=== PATIENT | female | born 1995 | race Hispanic/Latino ===

== ENCOUNTER 2017-04-28 18:28 | Outpatient (CLI) | payer MEDICAID ==
[2017-04-28 19:37] LABS: Hematocrit 33.8 % (30.3-42.9); Hemoglobin 10.7 gm/dl (10.1-14.3); Mean Corpuscular HGB Conc 32 % (30-34); Platelet Count 322 K/mm3 (140-440); Red Blood Count 4.88 M/mm3 (3.65-5.03); Red Cell Distribution Width 16.8 % (13.2-15.2); White Blood Count 12.3 K/mm3 (4.5-11.0)
[2017-04-28 19:40] LABS: Mean Corpuscular Hemoglobin 22 pg (28-32); Mean Corpuscular Volume 69 fl (79-97)
[2017-04-28 19:41] LABS: Bacteria,Urine 1+ /HPF (Negative); Bilirubin,Urine NEG (Negative); Blood,Urine NEG (Negative); Ketones,Urine TR mg/dL (Negative); Leukocyte Esterase,Urine NEG (Negative); Mucus,Urine 3+ /HPF; Nitrite,Urine NEG (Negative); Protein,Urine <15 mg/dL mg/dL (Negative); Urobilinogen,Urine < 2.0 mg/dL (<2.0)
[2017-04-28 20:04] LABS: Alanine Aminotransferase 11 units/L (7-56); Lactate Dehydrogenase 212 units/L (91-180); Uric Acid 6.4 mg/dL (3.5-7.6)
[2017-04-28 20:47] VITALS: BP 106/68
[2017-04-28] MEDS ORDERED: LACTATED RINGERS 1,000 ML ONE (20:53)
[2017-04-28] MEDS ORDERED: LACTATED RINGERS 1,000 ML IV ONE (21:00)
== END 2017-04-28 21:55 | disposition home or self-care (01) ==
LOC: TRG 18:28
PROVIDERS: ATTEND Obstetrics & Gynecology
DX: O47.03 False labor before 37 completed weeks of gestation, third trimester (principal); Z3A.36 36 weeks gestation of pregnancy; Z79.899 Other long term (current) drug therapy
CPT/HCPCS: 36415; 59025; 81001; 82565; 82962; 83615; 84450; 84460; 84550; 85027; 96360; J7120

== ENCOUNTER 2017-05-10 21:01 | Outpatient (CLI) | payer MEDICAID ==
[2017-05-10 21:16] VITALS: BP 118/81
[2017-05-10] MEDS ORDERED: LACTATED RINGERS 1,000 ML IV ONE (21:35)
--- NOTE | 2017-05-11 | Ultrasound Report ---
FINAL REPORT PROCEDURE: US OB LIMITED TECHNIQUE: Real-time limited sonographic examination was performed for evaluation of size, position, heartbeat, fluid volume for each fetus with image documentation (1 or more fetuses). CPT 26743 HISTORY: LEAKING AMNIOTIC FLUID COMPARISON: No prior studies are available for comparison. FINDINGS: Amniotic fluid index is 7.1 centimeters. heart rate is 177 beats per minute. IMPRESSION: Amniotic fluid index is 7.1 centimeters. heart rate is 177 beats per minute.
== END 2017-05-11 00:30 | disposition home or self-care (01) ==
LOC: TRG 21:01
PROVIDERS: ATTEND Obstetrics & Gynecology
DX: O42.92 Full-term premature rupture of membranes, unspecified as to length of time between rupture and onset of labor (principal); O47.1 False labor at or after 37 completed weeks of gestation; Z87.891 Personal history of nicotine dependence; Z3A.38 38 weeks gestation of pregnancy
CPT/HCPCS: 59025; 76815; J7120

== ENCOUNTER 2017-05-21 14:25 | Inpatient (IN) | payer MEDICAID ==
[2017-05-21 16:28] LABS: Hematocrit 32.3 % (30.3-42.9); Hemoglobin 10.4 gm/dl (10.1-14.3); Mean Corpuscular HGB Conc 32 % (30-34); Platelet Count 293 K/mm3 (140-440); Red Blood Count 4.87 M/mm3 (3.65-5.03); Red Cell Distribution Width 17.5 % (13.2-15.2)
[2017-05-21 16:30] LABS: Mean Corpuscular Hemoglobin 21 pg (28-32); Mean Corpuscular Volume 66 fl (79-97)
[2017-05-21] MEDS ORDERED: BRETHINE IVP PRN (16:44)
[2017-05-21] MEDS ORDERED: BRETHINE SUB-Q PRN (16:44)
[2017-05-21] MEDS ORDERED: MINERAL OIL PO PRN (16:44)
[2017-05-21] MEDS ORDERED: STADOL IV PRN (16:44)
[2017-05-21] MEDS ORDERED: ePHEDrine SULFATE IV PRN (16:44)
[2017-05-21] MEDS ORDERED: CERVIDIL VG ONE (16:44)
[2017-05-21] MEDS ORDERED: SUBLIMAZE IV PRN (16:44)
[2017-05-21] MEDS ORDERED: ZOFRAN IV PRN (16:44)
[2017-05-21] MEDS ORDERED: XYLOCAINE 2% INFILTRATI ONE (16:44)
--- NOTE | 2017-05-21 16:53 | History and Physical Report ---
History of Present Illness Date of examination: 05/21/17 Date of admission: 05/21/17 14:25 Chief complaint: My fluid is low History of present illness: Patient is a 22 year old who presents from [facility] after being told that her fluid was low. STEPHANIE measured 5.5 today. Patient was also diagnosed with gestational diabetes but has reported low blood sugars with "blacking out" until today when she told [facility] that her sugars have been in the 160s. In any case patient is 40 weeks today and presents for induction of labor. Past History Past Medical History: hypertension (gestational) Past Surgical History: no surgical history Family/Genetic History: diabetes Social history: - Obstetrical History Expected Date of Delivery: 05/21/17 Actual Gestation: 40 Week(s) 0 Day(s) : 2 Para: 1 Number of Living Children: 1 Medications and Allergies Allergies Allergy/AdvReac Type Severity Reaction Status Date / Time clindamycin Allergy Hives Verified 04/28/17 18:36 Home Medications Medication Instructions Recorded Confirmed Last Taken Type Ferrous Sulfate [Iron] 1 tab PO DAILY 04/28/17 04/28/17 Unknown History Metformin HCl [Glucophage] 500 mg PO DAILY 04/28/17 04/28/17 Unknown History Review of Systems All systems: negative Cardiovascular: syncope, lightheadedness - Vital Signs Vital signs: Vital Signs Pulse BP 102 H 122/82 05/21/17 15:05 05/21/17 15:05 Temp Pulse Resp BP Pulse Ox 97.3 F L 102 H 16 122/82 05/21/17 15:07 05/21/17 15:05 05/21/17 15:07 05/21/17 15:05 - Physical Exam Breasts: Positive: deferred Cardiovascular: Regular rate, Normal S1, Normal S2 Lungs: Positive: Clear to auscultation, Normal air movement Abdomen: Positive: normal appearance, soft, normal bowel sounds Genitourinary (Female): Positive: normal external genitalia, normal perenium Vagina: Positive: normal moisture Uterus: Positive: normal size, normal contour Extremities: Positive: normal Deep Tendon Reflex Grade: Normal +2 - Obstetrical Cervical Dilatation: 1 Cervical Effacement Percentage: 50 station: -3 Uterine Contraction Pattern: Absent Results Result Diagrams: 05/21/17 14:50 Abnormal lab results 05/21/17 05/21/17 Range/Units 14:50 15:10 WBC 14.1 H (4.5-11.0) K/mm3 MCV 66 L (79-97) fl MCH 21 L (28-32) pg RDW 17.5 H (13.2-15.2) % POC Glucose 67 L (70-105) All other labs normal. Assessment and Plan IUP at 40 weeks here for induction of labor for oligohydramnios. Will begin induction with cervidil and then proceed with pitocin in the am. Anticipate .
[2017-05-21] MEDS ORDERED: LACTATED RINGERS 1,000 ML IV SCH (17:00)
[2017-05-21] MEDS ORDERED: PITOCin/NS 20 UNIT/1000ML DRIP 20 UNITS/1,000 ML BAG IV SCH (17:00)
[2017-05-21] MEDS ORDERED: PITOCin/NS 30 UNIT/500ML 30 UNITS/500 ML BAG IV SCH (18:00)
[2017-05-22] MEDS ORDERED: NARCAN 2 MG/2 ML IV PRN (04:59)
[2017-05-22] MEDS ORDERED: fentaNYL-BUPIV 2 MCG/ML-0.125% 200 MCG/100 ML BAG EPIDURAL SCH (05:00)
--- NOTE | 2017-05-22 05:00 | Anesthesia Consultation ---
Anesthesia Consult and Med Hx Date of service: 05/22/17 - Airway Anesthetic Teeth Evaluation: Good ROM Head & Neck: Adequate Mental/Hyoid Distance: Adequate Mallampati Class: Class II Intubation Access Assessment: Probably Good - Pulmonary Exam CTA: Yes - Cardiac Exam Cardiac Exam: RRR - Pre-Operative Health Status ASA Pre-Surgery Classification: ASA2 Proposed Anesthetic Plan: Epidural, Spinal - Pulmonary Hx Asthma: Yes (last attack 1 yr ago) COPD: No Hx Pneumonia: No - Cardiovascular System Hx Hypertension: No - Central Nervous System Hx Seizures: No Hx Psychiatric Problems: Yes (depression, anxiety) - Endocrine Hx Renal Disease: No Hx End Stage Renal Disease: No Hx Hypothyroidism: No Hx Hyperthyroidism: No - Hematic Hx Anemia: No Hx Sickle Cell Disease: No - Other Systems Hx Alcohol Use: No Hx Obesity: Yes
[2017-05-22] MEDS ORDERED: PHENERGAN PO PRN (05:18)
[2017-05-22] MEDS ORDERED: TYLENOL PO PRN (05:18)
[2017-05-22] MEDS ORDERED: BENADRYL PO PRN (05:18)
[2017-05-22] MEDS ORDERED: PHENERGAN PR PRN (05:18)
[2017-05-22] MEDS ORDERED: DULCOLAX PR PRN (05:18)
[2017-05-22] MEDS ORDERED: TUCKS PAD TP PRN (05:18)
[2017-05-22] MEDS ORDERED: LANSINOH TP PRN (05:18)
[2017-05-22] MEDS ORDERED: MILK OF MAGNESIA PO PRN (05:18)
[2017-05-22] MEDS ORDERED: NORCO 5/325 PO PRN (05:18)
[2017-05-22] MEDS ORDERED: ZOFRAN IV PRN (05:18)
--- NOTE | 2017-05-22 05:18 | Procedure Note ---
OB Delivery Note - Delivery Date of Delivery: 05/22/17 Surgeon: YOCASTA PINK Estimated blood loss: 300cc - Vaginal Delivery presentation: vertex Delivery position: OA Intrapartum events: none Delivery augmentation: pitocin Delivery monitor: external FHT Route of delivery: Delivery placenta: spontaneous Delivery cord: 3 umbilical vessels Episiotomy: none Delivery laceration: none Anesthesia: none Delivery comments: Patient progressed to deliver a liveborn female with apgars of 8/9 and weight of 7lbs 3oz. The head and shoulders delivered without difficulty. The infant was bulb suctioned and stimulated. The cord was clamped and cut and infant placed on the patient's abdomen. The placenta delivered spontaneously intact with a 3VC. No lacerations noted. EBL 300ml. - Infant A at 1 minute: 8 (weight 7lbs 3oz) at 5 minutes: 9 Infant Gender: Female
[2017-05-22] MEDS ORDERED: SODIUM CHLORIDE FLUSH SYRINGE 10 ML IV NR (06:00)
[2017-05-22] MEDS ORDERED: PITOCin/NS 30 UNIT/500ML 30 UNITS/500 ML BAG IV SCH (07:00)
[2017-05-22] MEDS: MOTRIN PO SCH ×2 (11:30→22:23)
[2017-05-22 17:04] LABS: Hemoglobin 8.4 gm/dl (10.1-14.3)
[2017-05-23] MEDS: MOTRIN PO SCH ×3 (05:32→16:43)
[2017-05-23] MEDS ORDERED: BOOSTRIX IM ONE (08:00)
--- NOTE | 2017-05-23 09:52 | Progress Note ---
Assessment and Plan - Patient Problems (1) Oligohydramnios Current Visit: Yes Status: Acute Plan to address problem: Patient doing well. Discharge home Subjective - Subjective Date of service: 05/23/17 Interval history: The patient complains of having a rash on her torso has been present throughout the . She is currently breast-feeding. Patient reports: appetite normal, voiding normally, pain well controlled : doing well, nursing well Objective - Vital Signs Latest vital signs: Vital Signs Temp Pulse Resp BP BP Pulse Ox 05/23/17 01:34 98 F 86 18 102/57 05/22/17 16:14 98.3 F 82 18 102/68 96 Intake and Output 05/22/17 05/23/17 05/23/17 22:59 06:59 14:59 Intake Total 480 600 Balance 480 600 Intake: Oral 480 Intake, Free Water 600 Other: Total, Intake Amount 480 # Voids Void 2 1 # Bowel Movements 0 - Exam Breasts: Present: skin changes Cardiovascular: Present: Regular rate Uterus: Present: normal, firm - Labs Labs: Abnormal lab results 05/22/17 Range/Units 16:31 Hgb 8.4 L (10.1-14.3) gm/dl Hct 27.0 L (30.3-42.9) %
--- NOTE | 2017-05-23 09:53 | Discharge Summary ---
Providers - Providers Date of Admission: 05/21/17 14:25 Date of discharge: 05/23/17 Attending physician: DORIS KENDALL Primary care physician: DORIS KENDALL Hospitalization Reason for admission: other (oligohydramnios) Delivery: complications: none Discharge diagnosis: IUP at term delivered [place] baby: female Hospital course: The patient was admitted after being evaluated by maternal medicine with findings of an STEPHANIE of 5.5 cm. She was sent to labor and delivery for induction of labor. The patient had a successful vaginal delivery. Her course was uncomplicated. Condition at discharge: Good Disposition: DC-01 TO HOME OR SELFCARE - Discharge Diagnoses (1) Oligohydramnios Status: Acute Plan - Discharge Medications Prescriptions: Ferrous Sulfate [Feosol 325 MG tab] 325 mg PO BID #60 tablet HYDROcodone/APAP 5-325 [[place] 5/325] 1 each PO Q6HR PRN #30 tablet PRN Reason: Pain Hydrocortisone 1% [Hydrocortisone 1% CREAM] 1 applicatio TP BID #1 tube Ibuprofen [Motrin] 800 mg PO Q8HR PRN #60 tablet PRN Reason: Pain - Provider Discharge Summary Activity: no sex for 6 weeks, no heavy lifting 4 weeks, no strenuous exercise Diet: routine Instructions: routine Additional instructions: [] Smoking cessation referral if applicable(refer to patient education folder for contact #) [] Refer to [facility] Booklet Call your doctor immediately for: * Fever > 100.5 * Heavy vaginal bleeding ( >1 pad per hour) * Severe persistent headache * Shortness of breath * Reddened, hot, painful area to leg or breast * Follow-up 4 weeks - Follow up plan
[2017-05-23 14:51] VITALS: BP 102/74
== END 2017-05-23 17:00 | disposition home or self-care (01) | DRG 775 ==
LOC: LD 14:25 → OB 05-22 11:12
PROVIDERS: ADMIT Obstetrics & Gynecology; ATTEND Obstetrics & Gynecology
PROC: 10E0XZZ Delivery of Products of Conception, External Approach (ICD-10-PCS; principal; 2017-05-22)
DX: O41.03X0 Oligohydramnios, third trimester, not applicable or unspecified (principal); Z37.0 Single live birth; Z3A.40 40 weeks gestation of pregnancy; O99.52 Diseases of the respiratory system complicating childbirth; J45.909 Unspecified asthma, uncomplicated; O99.344 Other mental disorders complicating childbirth; F32.9 Major depressive disorder, single episode, unspecified
CPT/HCPCS: 36415; 82962; 85014; 85018; 85027; 86592; 86850; 86900; 86901; A6250; J0595; J2590; J3010; J7120

== ENCOUNTER 2017-06-30 09:07 | Day surgery (SDC) | payer MEDICAID ==
--- NOTE | 2017-06-30 08:53 | Short Stay Summary ---
Short Stay Documentation Date of service: 06/30/17 Narrative H&P: Patient is a 22 year old who presents today for elective sterilization. She is approximately 8 weeks post of a baby girl. - History Principal diagnosis: Undesired fertility H&P: obtained from office Past Medical History: No medical history Past Surgical History: No surgical history Social history: - Allergies and Medications Current Medications: Allergies clindamycin Allergy (Verified 06/25/17 12:53) Hives Home Medications Medication Instructions Recorded Confirmed Last Taken Type No Known Home Medications [No 06/25/17 06/25/17 Unknown History Reported Home Medications] - Physical exam General appearance: no acute distress Integumentary: no rash, no growths HEENT: Atraumatic Lungs: Clear to auscultation, Normal air movement Breasts: deferred Heart: Regular rate, Normal S1, Normal S2 Gastrointestinal: normal, normoactive bowel sounds Female Genitourinary: normal Rectal Exam: deferred Extremities: no ischemia, No edema - Brief post op/procedure progress note Date of procedure: 06/30/17 Pre-op diagnosis: Undesired fertility Post-op diagnosis: same Procedure: Laparoscopic Tubal ligation Anesthesia: GETA Findings: Normal appearing uterus tubes and ovaries Surgeon: DORIS KENDALL Estimated blood loss: 50-100ml Pathology: none Condition: stable - Hospital course Hospital course: Unremarkable - Disposition Condition at discharge: Good Disposition: DC-01 TO HOME OR SELFCARE Short Stay Discharge Plan Activity: advance as tolerated Weight Bearing Status: Weight Bear as Tolerated Diet: regular Follow up with: DORIS KENDALL MD [Primary Care Provider] - 14 Days Prescriptions: HYDROcodone/ACETAMINOPHEN [[place] 5-325 Tablet] 2 each PO Q6HR PRN #20 tablet PRN Reason: Pain Ibuprofen [Motrin] 800 mg PO Q8HR PRN #30 tablet PRN Reason: Pain
[~2017-06-30 09:07] MED LIST: ANCEF/STERILE WATER 2 GM/20 ML 2 GM/20 ML SYRINGE IV NR
--- NOTE | 2017-06-30 09:50 | Anesthesia Day of Surgery ---
Anesthesia Day of Surgery - Day of Surgery Patient Examined: Yes Patient H&P Reviewed: Yes Patient is NPO: Yes
--- NOTE | 2017-06-30 09:50 | Anesthesia Consultation ---
Anesthesia Consult and Med Hx Date of service: 06/30/17 - Airway Anesthetic Teeth Evaluation: Good (right missing molar ) ROM Head & Neck: Adequate Mental/Hyoid Distance: Adequate Mallampati Class: Class I Intubation Access Assessment: Good - Pulmonary Exam CTA: Yes - Cardiac Exam Cardiac Exam: RRR - Pre-Operative Health Status ASA Pre-Surgery Classification: ASA2 Proposed Anesthetic Plan: General - Pre-Anesthesia Comment Pre-Anesthesia Comments: 5weeks - Pulmonary Hx Smoking: Yes (EX) Hx Asthma: Yes (last inhaler use 1 year ago ) - Cardiovascular System Hx Hypertension: Yes (Hx preclampsia, resolved ) - Endocrine Hx Insulin Dependent Diabetes: Yes (hx gestational DM, resolved )
[2017-06-30] MEDS ORDERED: VERSED IV NR (10:00)
[2017-06-30] MEDS ORDERED: LACTATED RINGERS 1,000 ML IV SCH (10:00)
[2017-06-30] MEDS ORDERED: PEPCID PO NR (10:00)
[2017-06-30] MEDS ORDERED: NACL BACTERIOSTATIC INFILTRATI ONE (10:20)
[2017-06-30] MEDS ORDERED: DIPRIVAN 10 MG/ML IV ONE (10:51)
[2017-06-30] MEDS ORDERED: ZEMURON IV ONE (10:51)
[2017-06-30] MEDS ORDERED: DILAUDID ONE (10:51)
[2017-06-30] MEDS ORDERED: XYLOCAINE MPF 2% ONE (10:52)
[2017-06-30] MEDS ORDERED: MARCAINE 0.25% INFILTRATI ONE ×2 (10:57→12:00)
[2017-06-30] MEDS ORDERED: NEOSTIGMINE ONE (11:57)
[2017-06-30] MEDS ORDERED: ZOFRAN ONE (11:57)
[2017-06-30] MEDS ORDERED: ROBINUL ONE (11:58)
[2017-06-30] MEDS ORDERED: TORADOL ONE (11:58)
[2017-06-30] MEDS ORDERED: NACL 0.9% IR ONE (12:00)
--- NOTE | 2017-06-30 12:13 | Operative Report ---
Operative Report Operative Report: Preoperative diagnosis: Undesired fertility Postoperative diagnosis: Same Procedure: Laparoscopic tubal ligation Surgeon: Zo Cade Anesthesia: General EBL: Minimal IV fluids: [900] Urine output:[100] Findings:[Normal uterus tubes and ovaries] Specimens: None Complications: None The patient was properly identified as herself. She was then taken to the OR with IV running and in place. She was given general anesthesia without difficulty. She was placed in a dorsal lithotomy position. She was then prepped and draped in normal sterile fashion. Attention was turned to the patient's vagina. Her bladder was drained of clear urine with a red rubber catheter. The speculum was then placed the patient's vagina. The cervix was visualized and grasped with tenaculum. The acorn cannula was then inserted. The surgeon's gloves were changed and attention turned to the patient's abdomen. A small incision was made in the patient's umbilicus incision a 5 mm trocar was placed. The laparoscope confirmed intra-abdominal placement. The abdomen was insufflated with CO2 gas to approximately 25 mmHg. Both fallopian tubes were identified. With direct visualization a second trocar was placed through an incision in the left lower quadrant. Both tubes were found and followed out to the fimbriated ends. Each tube was cauterized in the midportion for 3 successive marrero until there was an area approximately 3 cm of blanched tissue. Each tube was then cut in the midportion There was excellent hemostasis at the end of this portion of the procedure. Each tube was handed off for pathology. At this point the abdomen was deflated. All instruments were then removed from the abdomen. The incisions were then closed with 4-0 Monocryl. The incisions were also injected with quarter percent Marcaine. The patient tolerated the procedure well she was then awakened and taken recovery in stable condition. Sponge needle and instrument counts were correct 2.
[2017-06-30] MEDS ORDERED: REGLAN IV ONE (12:21)
--- NOTE | 2017-06-30 12:21 | Anesthesia Consultation ---
Anesthesia Consult and Med Hx Date of service: 06/30/17 - Airway Anesthetic Teeth Evaluation: Good ROM Head & Neck: Adequate Mental/Hyoid Distance: Adequate Mallampati Class: Class I Intubation Access Assessment: Good - Pulmonary Exam CTA: Yes - Cardiac Exam Cardiac Exam: RRR - Pre-Operative Health Status ASA Pre-Surgery Classification: ASA2 - Pulmonary Hx Smoking: Yes (EX) Hx Asthma: Yes (last inhaler use 1 year ago ) - Cardiovascular System Hx Hypertension: Yes (Hx preclampsia, resolved ) - Central Nervous System Hx Psychiatric Problems: Yes - Endocrine Hx Insulin Dependent Diabetes: Yes (hx gestational DM, resolved ) - Other Systems Hx Cancer: No
[2017-06-30] MEDS ORDERED: SUBLIMAZE IV PRN (12:22)
--- NOTE | 2017-06-30 12:22 | Post Anesthesia Evaluation ---
- Post Anesthesia Evaluation Patient Participated: Yes Airway Patent: Yes Stable Respiratory Function: Yes Nausea/Vomiting: No Temp > 96.8F: Yes Pain Manageable: Yes Adequeate Hydration: Yes Anesthesia Complications: No
[2017-06-30 12:59] VITALS: BP 111/75
== END 2017-06-30 14:58 | disposition home or self-care (01) ==
LOC: OR 09:07
PROVIDERS: ATTEND Obstetrics & Gynecology
DX: Z30.2 Encounter for sterilization (principal); J45.909 Unspecified asthma, uncomplicated; I10 Essential (primary) hypertension; K21.9 Gastro-esophageal reflux disease without esophagitis; Z88.1 Allergy status to other antibiotic agents; Z87.891 Personal history of nicotine dependence
CPT/HCPCS: 58670; 81025; J0690; J1170; J1885; J2250; J2405; J2704; J2710; J2765; J7120